=== PATIENT | female | born 1960 | race Caucasian/White ===

== ENCOUNTER → 2022-09-22 09:54 | Outpatient (CLI) | payer OTHER, SELFPAY ==
--- NOTE | ~2022-09-22 | MR_ITS ---
EXAMINATION: MR lumbar spine wo con DATE: 09/22/2022 10:32 INDICATION: Worsening sciatica, now bilateral. lbp radiating down sena . TECHNIQUE: Magnetic resonance imaging (MRI) of the lumbar spine was performed without intravenous con trast. Sequences included sagittal T2-weighted FSE, sagittal T2-weighted FS FSE, sagittal T1-weighted FSE, and axial T2-weighted FSE. COMPARISON: CT abdomen pelvis 11/06/2014 FINDINGS: The last fully formed and hydrated disc is designated L5-S1. The marrow signal is benign an d homogenous. T12 vertebral body and left sacral hemangiomas. Conus terminates at L1-L2. Mild clumpin g of the nerve roots. Multilevel loss of disc height and hydration. The following disc levels are spe cifically discussed: T11-T12: The disc does not extend beyond the endplate margin. There is no facet joint osteoarthritis. There is no neural foraminal stenosis. There is no central canal stenosis. T12-L1: The disc does not extend beyond the endplate margin. There is no facet joint osteoarthritis. There is no neural foraminal stenosis. There is no central canal stenosis. L1-L2: Mild diffuse bulge. There is mild facet joint osteoarthritis. There is mild bilateral inferior neural foraminal stenosis. There is no central canal stenosis. L2-L3: Moderate diffuse bulge. There is moderate facet joint osteoarthritis. There is mild bilateral neural foraminal stenosis. There is no central canal stenosis. L3-L4: Moderate diffuse bulge. There is moderate facet joint osteoarthritis. There is mild bilateral neural foraminal stenosis. There is mild central canal stenosis. L4-L5: Moderate diffuse bulge with a 3 mm left paracentral protrusion. There is moderate facet joint osteoarthritis. There is moderate bilateral neural foraminal stenosis. There is no central canal sten osis. L5-S1: Moderate diffuse bulge. There is moderate facet joint osteoarthritis. There is mild bilateral neural foraminal stenosis. There is no central canal stenosis. IMPRESSION: 1. Multilevel moderate degenerative disc disease. 2. Multilevel moderate facet arthropathy. 3. Mild lumbar arachnoiditis. 4. Moderate bilateral neural foraminal stenosis at L4-5. Reviewed, dictated and finalized at location K.
== END ==
PROVIDERS: PCP Family Medicine Adolescent Medicine; Visit Provider Family Medicine Adolescent Medicine
DX: M54.31 Sciatica, right side (principal); M54.32 Sciatica, left side; M51.36 Other intervertebral disc degeneration, lumbar region
CPT/HCPCS: 72148

== ENCOUNTER 2023-04-17 10:07 | Outpatient (CLI) | payer OTHER, SELFPAY ==
--- NOTE | 2023-04-17 11:30 | NEURO_ITS ---
Impression: # Complains of lower back pain and leg pain. # Normal motor Nerve Conduction Study. # Poor sensory responses. # Normal needle/EMG without fibs, myotonia or fasciculations. # Clinical correlation recommended. Nerve Conduction Studies Anti Sensory Summary Table Stim Site NR Peak (ms) P-T Amp (?V) Site1 Site2 Delta-P (ms) Dist (cm) Ashu (m/s) Left Saphenous Anti Sensory (Ant Med Mall) NO RESPONSE 14cm NR 14cm Ant Med Mall 0.0 Right Saphenous Anti Sensory (Ant Med Mall) NO RESPONSE 14cm NR 14cm Ant Med Mall 0.0 Left Sup Fibular Anti Sensory (Ant Lat Mall) 14 cm 3.8 4.3 14 cm Ant Lat Mall 3.8 16.0 42 Right Sup Fibular Anti Sensory (Ant Lat Mall) NO RESPONSE 14 cm NR 14 cm Ant Lat Mall 16.0 Left Sural Anti Sensory (Lat Mall) NO RESPONSE Calf NR Calf Lat Mall 16.0 Right Sural Anti Sensory (Lat Mall) NO RESPONSE Calf NR Calf Lat Mall 16.0 Motor Summary Table Stim Site NR Onset (ms) O-P Amp (mV) Site1 Site2 Delta-0 (ms) Dist (cm) Ashu (m/s) Left Peroneal Motor (Vastus Med) Ankle 3.4 2.4 Popit Ankle 8.4 38.0 45 Popit 11.8 1.7 Right Peroneal Motor (Vastus Med) Ankle 2.7 1.8 Popit Ankle 7.9 38.0 48 Popit 10.6 1.2 Left Tibial Motor (Abd Beauchamp Brev) Ankle 3.5 2.9 Knee Ankle 8.0 38.0 48 Knee 11.5 1.1 Right Tibial Motor (Abd Beauchamp Brev) Ankle 3.2 3.7 Knee Ankle 8.3 38.0 46 Knee 11.5 4.4 F Wave Studies NR F-Lat (ms) L-R F-Lat (ms) Left Peroneal (Mrkrs) (EDB) 52.96 2.34 Right Peroneal (Mrkrs) (EDB) 50.63 2.34 Left Tibial (Mrkrs) (Abd Hallucis) 49.66 0.00 Right Tibial (Mrkrs) (Abd Hallucis) 49.66 0.00 EMG Side Muscle Nerve Root Ins Act Fibs Amp Dur Recrt Comment Right AntTibialis Dp Br Fibular L4-5 Nml Nml Nml Nml Nml Right Gastroc Tibial S1-2 Nml Nml Nml Nml Nml Right Fibularis Long Sup Br Fibular L5-S1 Nml Nml Nml Nml Nml Right Flex Dig Long Tibial L5-S2 Nml Nml Nml Nml Nml Right Ext Dig Brev Dp Br Fibular L5, S1 Nml Nml Nml Nml Nml Left AntTibialis Dp Br Fibular L4-5 Nml Nml Nml Nml Nml Left Gastroc Tibial S1-2 Nml Nml Nml Nml Nml Left Fibularis Long Sup Br Fibular L5-S1 Nml Nml Nml Nml Nml Left Flex Dig Long Tibial L5-S2 Nml Nml Nml Nml Nml Left Ext Dig Brev Dp Br Fibular L5, S1 Nml Nml Nml Nml Nml MTDD
== END 2023-04-17 10:08 | disposition home or self-care (01) ==
PROVIDERS: PCP Family Medicine Adolescent Medicine; Visit Provider Neurological Surgery
DX: M54.10 Radiculopathy, site unspecified (principal)
CPT/HCPCS: 95886; 95911

== ENCOUNTER 2023-04-28 13:54 | Outpatient (CLI) | payer OTHER, SELFPAY ==
--- NOTE | ~2023-04-28 | XR_ITS ---
EXAM: XR lumbar spine min 4V DATE: 04/28/2023 14:24 HISTORY: Radiculopathy, lumbar,chronic b/l back and leg pain . COMPARISON: 03/24/2009. FINDINGS: Cholecystectomy clips. 5 nonrib-bearing lumbar-type vertebral bodies. Pedicles intact. Grad e 1 anterolisthesis at L3-4 that reduces slightly in extension and worsens slightly in flexion. Trace retrolisthesis at L4-5 and minimal grade 1 anterolisthesis at L5-S1, both of which remain stable in flexion and extension. Vertebral body heights preserved. Multilevel mild disc space narrowing and mar ginal osteophytosis. Multilevel mild-moderate mid and lower lumbar facet hypertrophy. No fracture or dislocation. IMPRESSION: Dynamic grade 1 anterolisthesis at L3-4. Stable grade 1 listheses at L4-5 and L5-S1. Mult ilevel moderate degenerative disc disease. Multilevel mild-moderate facet arthropathy. Reviewed, dictated and finalized at location K. [employer] IMPRESSION: Dynamic grade 1 anterolisthesis at L3-4. Stable grade 1 listheses a t L4-5 and L5-S1. Multilevel moderate degenerative disc disease. Multilevel mil d-moderate facet arthropathy.
== END 2023-04-28 13:55 | disposition home or self-care (01) ==
PROVIDERS: PCP Family Medicine Adolescent Medicine; Visit Provider Neurological Surgery
DX: M43.06 Spondylolysis, lumbar region (principal); M51.36 Other intervertebral disc degeneration, lumbar region
CPT/HCPCS: 72110

== ENCOUNTER 2024-01-23 07:24 | Day surgery (SDC) | payer OTHER, SELFPAY ==
[2024-01-07 10:45] VITALS: BMI 38.8
[2024-01-23 08:09] VITALS: BP 154/76; PULSE 85; RESP 15; TEMP 37.2; O2SAT 94
--- NOTE | 2024-01-23 08:10 | WPDANESEPPF ---
Anes - Initial Pre Proc Eval Procedure: Operation Date: 01/23/24 09:30 Proposed Procedures p Screening Colonoscopy - Rj Mehta MD Date/Time: 01/23/24 08:10 Surgeon: Rj Mehta MD Pre Op Diagnosis: Screening for Neoplasm of Colon Patient Data Age: 63 Gender: F Height: 1.6 m Weight: 94.15 kg Allergies Allergy/AdvReac Type Severity Reaction Status Date / Time adhesive Allergy Mild Blister Verified 01/23/24 08:08 ciprofloxacin Allergy Unknown Nausea Verified 01/23/24 08:08 Home Medications Medication Instructions Recorded Confirmed Type furosemide 40 mg tablet 40 mg PO QAM PRN edema #30 tabs 02/04/23 01/23/24 Rx atorvastatin 20 mg tablet 20 mg PO DAILY #90 tabs 06/14/23 01/23/24 Rx levothyroxine 300 mcg tablet 300 mcg PO DAILY #90 tabs 06/14/23 01/23/24 Rx melatonin 10 mg tablet 10 mg PO HS PRN Insomnia 01/08/24 01/23/24 History metformin 500 mg tablet,extended 500 mg PO QID 01/08/24 01/23/24 History release 24 hr alprazolam 0.5 mg tablet 0.5 mg PO QID PRN anxiety #120 tabs 01/21/24 01/23/24 Rx oxycodone 10 mg tablet 10 mg PO Q4H PRN pain #170 tabs 01/21/24 01/23/24 Rx Patient hx anesthesia problems: none Family hx anesthesia problems: none Results Review: All pre-operative results and documents have been reviewed as part of the pre-operative evaluation. [facility] Past Medical History Medical History Anxiety Gastro-esophageal reflux disease without esophagitis Hypothyroidism, unspecified Mixed hyperlipidemia Normal colonoscopy 2014 Type 2 diabetes mellitus without complications Surgical History Surgical History History of appendectomy (1992) History of cholecystectomy 2015 History of hysterectomy (~1997) History of shoulder surgery 2004, Right rotator cuff repair Family History Family History Father Acute myocardial infarction Diabetes mellitus Grandparent Breast cancer Heart disease Mother Hypertension Social History Social History Smoking status: Current every day smoker Tobacco type: cigarettes Second hand tobacco smoke exposure: Yes Alcohol intake: never Alcohol use details: rarely Substance use: never Substance use type: does not use Do You Feel Safe in your Home?: Yes Lack of Transportation: No Lack of Food: Never True Current Housing: I Have Housing Concerned About Future Housing: No Difficulty Paying Gas/Electric Bills: No Difficulty Paying for Meds: No Currently Unemployed: No Education: High School Diploma/GED Difficulty w/ Childcare or Family Care: No Living arrangements: with family Occupation/Education: other Gender identity (if verbalized by the patient): Female Sexual Orientation (if Verbalized by the Patient): Straight or Heterosexual Spiritual care concerns: No Agree to blood products: Yes Anes - Eval Final PreProcedure Day of Procedure 01/23/24 08:10 Patient weight: obese Heart: regular rate and rhythm Lungs: clear to auscultation Airway: Mallampati scale class II Neurological: alert and oriented Last oral intake: >/= 8 hours ASA classification: III Emergent: no Anesthetic plan: proceed Anesthesia type and monitoring: general GIVS Results Review: All pre-operative results and documents have been reviewed as part of the pre-operative evaluation. Informed Consent: The patient's anesthetic plan and its attendant risks and benefits were discussed with the patient/family/POA. Questions were solicited and answers provided to the satisfaction of the patient/family/POA.
[2024-01-23] MEDS: LACTATED RINGERS 1,000 ML 150 ML IV CONT (08:14)
--- NOTE | 2024-01-23 08:18 | PM.HPGS ---
History of Present Illness History of Present Illness Consent: Risks, benefits, and alternatives have been discussed and questions answered. Patient agrees to proceed with procedure. Chief complaint: Screening for Neoplasm of Colon Narrative: Zelalem Beauchamp is a 63 year old female presents for screening colonoscopy. Patient has current weight appetite some are normal. Patient denies abdominal pain. She has had no bleeding. Family history is noncontributory. Previous exam more than 10 years ago was unremarkable. Review of Systems Review of Systems: All systems reviewed & are unremarkable except as noted in HPI and below PMFSH Past Medical History Medical History Anxiety Gastro-esophageal reflux disease without esophagitis Hypothyroidism, unspecified Mixed hyperlipidemia Normal colonoscopy 2014 Type 2 diabetes mellitus without complications Surgical History Surgical History History of appendectomy (1992) History of cholecystectomy 2014 History of hysterectomy (~1997) History of shoulder surgery 2004, Right rotator cuff repair Family History Family History Father Acute myocardial infarction Diabetes mellitus Grandparent Breast cancer Heart disease Mother Hypertension Social History Social History Smoking status: Current every day smoker Tobacco type: cigarettes Second hand tobacco smoke exposure: Yes Alcohol intake: never Alcohol use details: rarely Substance use: never Substance use type: does not use Do You Feel Safe in your Home?: Yes Lack of Transportation: No Lack of Food: Never True Current Housing: I Have Housing Concerned About Future Housing: No Difficulty Paying Gas/Electric Bills: No Difficulty Paying for Meds: No Currently Unemployed: No Education: High School Diploma/GED Difficulty w/ Childcare or Family Care: No Living arrangements: with family Occupation/Education: other Gender identity (if verbalized by the patient): Female Sexual Orientation (if Verbalized by the Patient): Straight or Heterosexual Spiritual care concerns: No Agree to blood products: Yes Meds Home Medications and Allergies Home Medications Medication Instructions Recorded Confirmed Type furosemide 40 mg tablet 40 mg PO QAM PRN edema #30 tabs 02/04/23 01/23/24 Rx atorvastatin 20 mg tablet 20 mg PO DAILY #90 tabs 06/14/23 01/23/24 Rx levothyroxine 300 mcg tablet 300 mcg PO DAILY #90 tabs 06/14/23 01/23/24 Rx melatonin 10 mg tablet 10 mg PO HS PRN Insomnia 01/08/24 01/23/24 History metformin 500 mg tablet,extended 500 mg PO QID 01/08/24 01/23/24 History release 24 hr alprazolam 0.5 mg tablet 0.5 mg PO QID PRN anxiety #120 tabs 01/21/24 01/23/24 Rx oxycodone 10 mg tablet 10 mg PO Q4H PRN pain #170 tabs 01/21/24 01/23/24 Rx Allergies Allergy/AdvReac Type Severity Reaction Status Date / Time adhesive Allergy Mild Blister Verified 01/23/24 08:08 ciprofloxacin Allergy Unknown Nausea Verified 01/23/24 08:08 Vital Signs Vital Signs - 24 hr 01/23/24 08:09 Temperature 98.9 F Pulse Rate 85 Respiratory Rate 15 Blood Pressure 154/76 H Pulse Oximetry 94 Oxygen Delivery Room Air Exam Narrative: Physical exam reveals patient signs stable. HEENT exam is unremarkable. Is anicteric. Lungs are clear to auscultation and to percussion. Heart is without murmur sounds. Abdomen bowel sounds are present soft nontender with no organomegaly. Digital external rectal exam normal. Assessment and Plan Assessment and plan (1) Screen for colon cancer: Code(s): Z12.11 - Encounter for screening for malignant neoplasm of colon Status: Acute Assessment and Plan: Patient presents today for neoplasia screening colonoscopy. Further rec
[2024-01-23 08:25] LABS: Glucose Point of Care 153 mg/dl (65-105)
[2024-01-23 08:38] VITALS: BP 105/94; PULSE 85; RESP 20; O2SAT 97
[2024-01-23 08:48] VITALS: BP 108/72; PULSE 80; RESP 20; O2SAT 96
[2024-01-23 08:58] VITALS: BP 112/66; PULSE 80; RESP 22; O2SAT 96
--- NOTE | 2024-01-23 09:18 | WPDANESPN ---
Anes - Prog Note Post-Op Date/Time: 01/23/24 09:18 Cardiovascular status: normal Respiratory status: normal Airway patency: baseline Mental status: baseline Post-Op hydration status: normal Vital Signs: Last Vital Signs Temp 37.2 C 01/23/24 08:09 Pulse 80 01/23/24 08:58 Resp 22 H 01/23/24 08:58 BP 112/66 01/23/24 08:58 Pulse Ox 96 01/23/24 08:58 O2 Del Method Room Air 01/23/24 08:58 Pain Score (VAS): 0 I/O: Intake & Output 01/22/24 01/23/24 01/23/24 23:59 07:59 15:59 Intake Total 50 Balance 50 01/23/24 08:16 POC Capillary Glucose 153 H Post-procedural complaints: none Patient Feedback: Patient satisfied with anesthetic care.
== END 2024-01-23 09:05 | disposition home or self-care (01) ==
PROVIDERS: PCP Family Medicine Adolescent Medicine; Visit Provider Internal Medicine Gastroenterology
PROC: 0DJD8ZZ Inspection of Lower Intestinal Tract, Via Natural or Artificial Opening Endoscopic (ICD-10-PCS; CPT 45378; principal; 2024-01-23 09:30)
DX: Z12.11 Encounter for screening for malignant neoplasm of colon (principal); D12.8 Benign neoplasm of rectum; K57.30 Diverticulosis of large intestine without perforation or abscess without bleeding
CPT/HCPCS: 45385

== ENCOUNTER 2024-01-23 10:04 | Outpatient (NON) | payer OTHER, SELFPAY | END 2024-01-23 10:05 | disposition home or self-care (01) | LOC: ANHLAB 01-24 10:05 | PROVIDERS: PCP Family Medicine Adolescent Medicine; Visit Provider Internal Medicine Gastroenterology | DX: K62.1 Rectal polyp (principal) | CPT/HCPCS: 88305 ==